=== PATIENT | female | born 1960 | race Caucasian/White ===

== ENCOUNTER → 2021-08-23 | Outpatient (CLI) | payer BC ==
[2021-08-23 16:50] LABS: HCT 41.1 % (34.0-46.0); HGB 13.6 gm/dL (11.4-16.0); MCV 90.9 fL (80.0-100.0); Mean Platelet Volume 8.3; Platelet Count 284 k/uL (150-450); RBC 4.53 m/uL (3.80-5.40); RDW 13.4 % (11.5-15.5); WBC 9.6 k/uL (3.8-10.6)
[2021-08-23 16:56] LABS: Appearance,Urine Clear (Clear); Bilirubin,Urine Negative (Negative); Blood,Urine Negative (Negative); Color,Urine Light Yellow; Glucose,Urine (UA) Negative (Negative); Ketones,Urine Negative (Negative); Leukocyte Esterase,Urine Negative (Negative); Nitrite,Urine Negative (Negative); PH, Urine 5.5 (5.0-8.0); Protein,Urine Negative (Negative); Urobilinogen,Urine <2.0 mg/dL (<2.0)
[2021-08-23 17:05] LABS: INR 0.9 (<1.2); Partial Thromboplastin Time 23.8 sec (22.0-30.0); Prothrombin Time 10.2 sec (9.0-12.0)
[2021-08-23 17:08] LABS: ALT 17 U/L (4-34); AST 24 U/L (14-36); African American GFR (CKD) >90 (>60 ml/min/1.73 sqM); Albumin 4.5 g/dL (3.5-5.0); Alkaline Phosphatase 85 U/L (38-126); Anion Gap 9 mmol/L; Blood Urea Nitrogen 14 mg/dL (7-17); Calcium 9.8 mg/dL (8.4-10.2); Carbon Dioxide 27 mmol/L (22-30); Chloride 102 mmol/L (98-107); Glucose 99 mg/dL (74-99); Non-African American GFR(CKD) >90 (>60 ml/min/1.73 sqM); Potassium 4.2 mmol/L (3.5-5.1); Sodium 138 mmol/L (137-145); Total Bilirubin 0.6 mg/dL (0.2-1.3); Total Protein 7.3 g/dL (6.3-8.2)
== END | disposition home or self-care (01) ==
LOC: LABPAT 16:30
PROVIDERS: ATTEND Orthopaedic Surgery Sports Medicine
DX: Z01.812 Encounter for preprocedural laboratory examination (principal); M17.12 Unilateral primary osteoarthritis, left knee
CPT/HCPCS: 36415; 80053; 81003; 85027; 85610; 85730; 87070

== ENCOUNTER → 2021-09-13 | Outpatient (CLI) | payer BC | END | disposition home or self-care (01) | LOC: RADNMMAIN 07:54 | PROVIDERS: ATTEND Family Medicine | DX: Z53.9 Procedure and treatment not carried out, unspecified reason (principal) ==

== ENCOUNTER → 2021-09-28 | Outpatient (CLI) | payer BC ==
[2021-09-29 12:19] LABS: Coronavirus SARS CoV-2 Not Detected (Not Detected)
== END | disposition home or self-care (01) ==
LOC: LABPAT 07:55
PROVIDERS: ATTEND Internal Medicine Cardiovascular Disease
DX: Z20.822 Contact with and (suspected) exposure to COVID-19 (principal)
CPT/HCPCS: U0003; C9803; U0005

== ENCOUNTER 2021-10-01 06:10 | Day surgery (SDC) | payer BC ==
[2021-09-28 13:07] VITALS: BMI 41.9
[~2021-10-01 06:10] MED LIST: ALPRAZolam 0.25 MG TAB PO PRN; ALPRAZolam 0.5 MG TAB PO PRN; ATORVASTATIN 80 MG TAB PO STA; NITROGLYCERIN SL TABS 0.4 MG TAB SUBLINGUAL PRN; SODIUM CHLORIDE 0.9% 1,000 ML in EMPTY BAG 1 BAG IV SCH
[2021-10-01] MEDS ORDERED: SODIUM CHLORIDE 0.9% 1,000 ML IV ONE (06:19)
[2021-10-01 06:45] VITALS: RESP 16; TEMP 98.1
[2021-10-01 06:48] LABS: Basophils % (A) 1 %; Eosinophils # (A) 0.3 k/uL (0-0.7); Eosinophils % (A) 5 %; HCT 40.9 % (34.0-46.0); HGB 13.2 gm/dL (11.4-16.0); Lymphocytes # (A) 1.9 k/uL (1.0-4.8); Lymphocytes % (A) 26 %; MCH 29.6 pg (25.0-35.0); MCHC 32.3 g/dL (31.0-37.0); MCV 91.8 fL (80.0-100.0); Mean Platelet Volume 8.7; Monocytes # (A) 0.4 k/uL (0-1.0); Monocytes % (A) 5 %; Neutrophils # (A) 4.6 k/uL (1.3-7.7); Neutrophils % (A) 62 %; Platelet Count 285 k/uL (150-450); RBC 4.45 m/uL (3.80-5.40); RDW 14.1 % (11.5-15.5); WBC 7.4 k/uL (3.8-10.6)
[2021-10-01 07:08] LABS: African American GFR (CKD) >90 (>60 ml/min/1.73 sqM); Anion Gap 8 mmol/L; Blood Urea Nitrogen 16 mg/dL (7-17); Calcium 9.7 mg/dL (8.4-10.2); Carbon Dioxide 25 mmol/L (22-30); Chloride 107 mmol/L (98-107); Glucose 113 mg/dL (74-99); Non-African American GFR(CKD) >90 (>60 ml/min/1.73 sqM); Potassium 4.8 mmol/L (3.5-5.1); Sodium 140 mmol/L (137-145)
[2021-10-01] MEDS: fentaNYL (PF) 50 MCG/ML 2 ML AMP IV ONE ×2 (07:35→07:46)
[2021-10-01] MEDS: MIDAZOLAM 2 MG/2 ML VIAL IV ONE ×2 (07:35→07:46)
[2021-10-01] MEDS ORDERED: LIDOCAINE 1% INJ 10MG/ML (20 ML MDV) SQ ONE (07:38)
[2021-10-01] MEDS ORDERED: VERAPAMIL SYRINGE (5 MG/10 ML) INTRAARTER ONE (07:45)
[2021-10-01] MEDS ORDERED: HEPARIN SODIUM 1,000 UN/ML (10ML VL) IV ONE (07:48)
[2021-10-01] MEDS ORDERED: IOPAMIDOL-370 125ML BTL INJ ONE (07:56)
--- NOTE | 2021-10-01 09:45 | LTR ---
October 01, 2021 To: Dr. Malin Re: Elizabeth Bob (62) Dear Noah, I performed cardiac catheterization on Elizabeth Bob. A detailed catheterization note is enclosed for your records. In brief, this 60-year-old lady who was to undergo knee replacement was referred to us because of an abnormal stress echo. I am happy to report to you that on the cardiac catheterization I performed she has normal coronary arteries, and she can proceed with her knee replacement by Dr. Kaiser. Thank you for giving me the privilege of participating in the care of this pleasant lady. Sincerely, Vikram Brown M.D. EVERT / IVONNE: [id number] /
--- NOTE | 2021-10-01 09:45 | CC ---
CARDIAC CATHETERIZATION REPORT INDICATION: Abnormal stress echo. This is a 60-year-old lady who was to undergo bilateral knee replacement surgery by Dr. Kaiser and was referred to us and underwent a stress echo that was abnormal, due to which she was referred to us for further evaluation. Patient was advised to undergo cardiac catheterization. She understood risks, benefits and alternatives. PROCEDURE NOTE: After obtaining informed consent, left heart catheterization and coronary angiogram were performed via the right radial artery using size 4 right and left Angie catheters. Left ventricular end-diastolic pressures were obtained by the right Angie catheter. The right radial artery access was obtained using a micropuncture needle, and under fluoroscopic guidance wires and catheters were floated into the ascending aorta and catheters were exchanged there. Patient received 5 mg of verapamil, 5000 units of heparin, 2 mg of Versed and 50 mcg of fentanyl. Post cardiac catheterization a TR band was applied as per protocol. Pulse ox was documented at 99%. Total sedation time was 21 minutes. FINDINGS: HEMODYNAMICS: The left ventricular end-diastolic pressure is 16 mm. There is no significant gradient across the aortic valve. LEFT VENTRICULOGRAM: Left ventriculogram was not performed. ANGIOGRAPHIC DATA: Left main coronary artery. Left main coronary artery is a normal-sized vessel and is free of stenosis. It divides into left anterior descending coronary artery and circumflex coronary artery. LAD and its branches, circumflex coronary artery and its branches are free of significant stenosis. Right coronary artery is a codominant vessel and is free of significant disease. CONCLUSIONS: 1. Normal coronary arteries. 2. False stress echo. PLAN: Patient is cleared to undergo knee replacement. MMODL / IJN: [id number] /
[2021-10-01] MEDS ORDERED: RX INFO: IV CONTRAST WAS GIVEN 1 EACH MISC MISCELLANE PRN (11:06)
[2021-10-01] MEDS ORDERED: SODIUM CHLORIDE 0.9% 1,000 ML IV SCH (11:15)
[2021-10-01 16:19] VITALS: BP 116/66; PULSE 66
== END 2021-10-01 13:03 | disposition home or self-care (01) ==
LOC: CATHCVL 06:10
PROVIDERS: ATTEND Internal Medicine Cardiovascular Disease
DX: I49.1 Atrial premature depolarization (principal); R94.39 Abnormal result of other cardiovascular function study; R93.1 Abnormal findings on diagnostic imaging of heart and coronary circulation; M19.90 Unspecified osteoarthritis, unspecified site; E78.2 Mixed hyperlipidemia; J45.909 Unspecified asthma, uncomplicated; I10 Essential (primary) hypertension; E78.5 Hyperlipidemia, unspecified; Z82.49 Family history of ischemic heart disease and other diseases of the circulatory system
CPT/HCPCS: 93458; 80048; 85025; C1894; J2250; J2001; J3010; J1644; Q9967

== ENCOUNTER 2021-10-28 07:24 | Observation (INO) | payer BC ==
[2021-10-25 13:00] VITALS: BMI 41.9
[~2021-10-28 07:24] MED LIST changes: +ACETAMINOPHEN TAB 500 MG TAB PO PRN; -ALPRAZolam 0.25 MG TAB PO PRN; -ALPRAZolam 0.5 MG TAB PO PRN; -ATORVASTATIN 80 MG TAB PO STA; +DEXAMETHASONE SOD PHOSPHATE 4 MG/ML 1 ML VIAL IV ONE; +GABAPENTIN 300 MG CAP PO PRN; +HYDROmorphone 0.5 MG/0.5 ML SYRINGE IVP PRN; +LACTATED RINGERS 1,000 ML IV SCH; +MIDAZOLAM 2 MG/2 ML VIAL IV PRN; -NITROGLYCERIN SL TABS 0.4 MG TAB SUBLINGUAL PRN; +ONDANSETRON 4 MG/2 ML VIAL IVP ONE; +ONDANSETRON 4 MG/2 ML VIAL IVP PRN; -SODIUM CHLORIDE 0.9% 1,000 ML in EMPTY BAG 1 BAG IV SCH; +TRANEXAMIC ACID 1,000 MG in SODIUM CHLORIDE 0.9% 100 ML IVPB PRN
[2021-10-28] MEDS ORDERED: bisacodyL 10 MG SUPP RECTAL PRN (08:39)
[2021-10-28] MEDS ORDERED: HYDROmorphone 1 MG/ML 1 ML SYRINGE IVP PRN (08:39)
[2021-10-28] MEDS ORDERED: TEMAZEPAM 15 MG CAP PO PRN (08:39)
[2021-10-28] MEDS ORDERED: NA PHOS,M-B/NA PHOS,DI-BA 133 ML ENEMA RECTAL PRN (08:39)
[2021-10-28] MEDS ORDERED: ONDANSETRON 4 MG/2 ML VIAL IVP PRN (08:39)
[2021-10-28] MEDS ORDERED: NALOXONE 0.4 MG/ML 1 ML VIAL IV PRN (08:39)
[2021-10-28] MEDS ORDERED: MAGNESIUM HYDROXIDE 2,400 MG/10 ML CUP PO PRN (08:39)
[2021-10-28] MEDS ORDERED: ACETAMINOPHEN TAB 325 MG TAB PO PRN (08:39)
[2021-10-28] MEDS ORDERED: HYDROmorphone 0.2 MG/1 ML SYRINGE IVP PRN (08:39)
[2021-10-28] MEDS ORDERED: diazePAM 5 MG TAB PO PRN (08:39)
[2021-10-28] MEDS ORDERED: MIDAZOLAM 2 MG/2 ML VIAL IVP ONE (08:40)
[2021-10-28] MEDS ORDERED: HYDROcodone/APAP 7.5-325MG 1 EACH TAB PO PRN (08:43)
[2021-10-28] MEDS ORDERED: fentaNYL (PF) 50 MCG/ML 2 ML AMP IVP ONE (09:00)
[2021-10-28] MEDS ORDERED: DEXAMETHASONE SOD PHOSPHATE 4 MG/ML 1 ML VIAL ONE (09:01)
[2021-10-28] MEDS ORDERED: MIDAZOLAM 2 MG/2 ML VIAL ONE (09:01)
[2021-10-28] MEDS ORDERED: SODIUM CHLORIDE 0.9% 100 ML BAG ONE (09:01)
[2021-10-28] MEDS ORDERED: fentaNYL (PF) 50 MCG/ML 2 ML AMP ONE (09:01)
[2021-10-28] MEDS ORDERED: PROPOFOL 10 MG/ML 20 ML VIAL IV ONE (09:01)
[2021-10-28] MEDS ORDERED: PHENYLEPHRINE-0.9% NACL SYG 1,000 MCG/10 ML SYRINGE ONE (09:01)
[2021-10-28] MEDS ORDERED: TRANEXAMIC ACID 1,000 MG/10 ML VIAL ONE (09:01)
[2021-10-28] MEDS ORDERED: ROPIVACAINE 5 MG/ML 30 ML VIAL ONE (09:01)
[2021-10-28] MEDS ORDERED: ePHEDrine 50 MG/ML 1 ML VIAL ONE (09:01)
[2021-10-28] MEDS ORDERED: LIDOCAINE 1% INJ 10MG/ML (20 ML MDV) ONE (09:01)
[2021-10-28] MEDS ORDERED: ceFAZolin 3,000 MG in SODIUM CHLORIDE 0.9% IRRIGATIO 3,000 ML IRRIGATION ONE (09:27)
[2021-10-28] MEDS ORDERED: LACTATED RINGERS 1,000 ML IV ONE (10:42)
[2021-10-28] MEDS ORDERED: ROPIVACAINE 0.2%-NS ON-Q PUMP 1,090 MG, EMPTY PAIN BALL 1 EACH MISCELLANE PRN (11:47)
--- NOTE | 2021-10-28 11:47 | XR ---
EXAMINATION TYPE: XR knee limited LT DATE OF EXAM: 10/28/2021 COMPARISON: NONE HISTORY: 60-year-old female evaluation for postoperative abnormality and alignment TECHNIQUE: 2 views FINDINGS: Anterior soft tissue swelling with scattered soft tissue air as well as intra-articular air related t o recent operation. Images show placement of left total knee arthroplasty. Both distal femoral and pr oximal tibial components of the prosthesis are well seated without periprosthetic fracture. Alignment grossly anatomic. IMPRESSION: Uncomplicated postoperative appearance left total knee arthroplasty.
--- NOTE | 2021-10-28 13:42 | OP ---
OPERATIVE REPORT DATE OF PROCEDURE: 10/28/2021. SURGEON: Andrea Kaiser MD. COLD TYPE COMPOSING MACHINE OPERATOR: Hong PARKER. PREOPERATIVE DIAGNOSIS: Left knee osteoarthrosis. POSTOPERATIVE DIAGNOSIS: Left knee osteoarthrosis. OPERATION: Left total knee arthroplasty. ANESTHESIA: Spinal with sedation. ESTIMATED BLOOD LOSS: 200 mL. TOURNIQUET: Tourniquet time was 59 minutes at 300 mmHg. COMPLICATIONS: None apparent. DRAINS: None. DISPOSITION: Postanesthesia care unit. INDICATIONS: Elizabeth is a very pleasant 60-year-old female with longstanding history of left knee pain. History and physical examination are consistent with advanced left knee osteoarthrosis. She has been through significant nonoperative management up to this point. Further treatment options were discussed and she has decided to go forward with left total knee arthroplasty. The risks of the procedure were discussed with her in detail. These risks included, but are not limited to risk of infection, nerve damage, bleeding, pain, and a small risk of deep vein thrombosis which could lead to fatal pulmonary embolism. There is also risk of loosening of the implant which could require revision operation. The patient understands these risks. All of her questions were answered to her satisfaction. Appropriate informed consent was obtained. DESCRIPTION OF PROCEDURE: The patient was identified in the preoperative holding area. Surgical site was marked by both the patient and myself. She was given 3 grams of Ancef IV for prophylactic purposes. She was then transferred to the operative suite. She was placed supine on the operative table. Spinal anesthetic was then administered and dosed per the anesthesia without apparent complication. Examination under anesthesia was then performed. The patient was 2-3 degrees shy of full extension. She had 95 degrees of flexion. The medial collateral ligament, lateral collateral ligament posterior cruciate ligaments were stable. A tourniquet was then placed high on the left upper thigh well-padded in preparation for surgery. The patient's left lower extremity was then prepped and draped in usual sterile fashion. Standard surgical pause undertaken to ensure that we were operating the correct site and that appropriate preoperative antibiotics had been given. All staff were in the room were in agreement and we proceeded. The outlines of the patella marked with a surgical pen. A planned 12 cm vertical incision centered over the patella was marked with a surgical pen. The leg was then exsanguinated with an Esmarch dressing. The knee was then flexed and the tourniquet was inflated to 300 mmHg. The total tourniquet time for the procedure was 59 minutes. Incision was then made with a 10 blade scalpel. Dissection carried down sharply overlying fascia. Great care was taken to minimize the skin flaps. The knee was then exposed using a standard medial parapatellar approach. A small cuff of quadriceps tendon was left for suturing. She was in a bit of varus preoperatively. A standard medial release was then made. Superficial medial collateral ligament dissected off the bone around the posterior aspect of the proximal tibia. The medial meniscus excised as well. The lateral meniscus was also released anteriorly. The leg was then externally rotated. The patella was everted. The knee was flexed the retractors then placed to protect the collateral ligaments. I then proceeded to remove the infrapatellar fat pad. This was excised sharply tangentially with fibers of the patellar tendon. I then proceeded to remove the peripheral osteophytes. This was done with a rongeur. I then proceeded with the distal femoral resection. She did have near full extension. A planned 9 mm resection was then done. The femoral canal was then into the midline. The femur approximately 10 mm anterior to the origin of posterior cruciate ligament. The mary was then advanced down the center of the femur and placed intramedullary. Based on the preoperative radiographs, the angle between the anatomic and mechanical axis of the femur was approximately 4-5 degrees. The valgus angle of the distal femoral cutting guide was then set at 4 degrees for the left knee. The distal femoral cutting guide was then advanced over the intramedullary mary. This was seated firmly against the femur. Then as mentioned planned to take 9 mm off the distal femur. Then, the femoral cutting block was then centered. It was then secured onto the femur with pins. The jig was then removed. The distal femoral cut was made through the slot of the block. The pins then removed. Distal femoral cutting block was removed. The accuracy of the distal femoral cuts was checked with 2 flat bars. I then proceeded with femoral sizing. Posterior referencing sizing guide was held firmly against the resected distal surface of the femur. The posterior condyles were resting on the posterior plane of the guide. The sizing guide was then placed on the anterior femur. The size measured a size 8. I then assessed for femoral rotation. The plan was for 3 degrees of external rotation. 3 degrees external rotation was placed onto the jig. These holes were then marked. I then confirmed the rotation by 3 separate methods. This was done using epicondylar axis as well as Whitesides line and posterior referencing. It was deemed that the external rotation was proper. I then went forward with placing the femoral cutting block. This was placed over the previously placed pin holes. The Jian wing was then placed on the anterior slots to ensure that we would not notch the anterior femur with the anterior femoral cut. I then proceeded with the anterior femoral cut. This was flush with the anterior cortex of the femur. The posterior cuts were then made followed by the anterior chamfer cut, then the posterior chamfer cut. The cutting block was then removed. Throughout the resection, the collateral ligaments were protected with retractors. I then placed a trial size 8 femur. It was slightly wide, but the narrow fit very nicely and it fit flush with the distal end of the femur. The drill hole was then made. I then proceeded with the tibial cut. I planned for cruciate retaining knee. Guide was placed and set for varus valgus and for slope. Height set for approximate 2 mm resection from the medial tibial plateau which was the lower side. I was happy with the alignment and amount of resection. The cutting block was then pinned to the proximal tibia. The alignment mary was removed. The proximal tibia was resected with a reciprocating saw. Again, this was done with retractors protecting the collateral ligaments as well as the posterior cruciate ligament. I then proceeded to evaluate the flexion extension gaps. A 10 mm block was then placed. The flexion and extension gaps were equal. I then proceeded with resection of posterior osteophytes. She had very minimal posterior osteophytes. This was done using a curved osteotome. This resected the posterior osteophytes and posterior capsule stripping was done off the posterior aspect of the femur at this time. The osteophytes were then removed. I then proceed with resection of the patella. The thickness of the patella was measured using the caliper. The thickness was 22 mm. The thickness of the anticipated patellar dome was taken into account. Resection was then performed and confirmed to be equal in 4 quadrants using a caliper. Approximately 14 mm of bone remained after resection. A 29 x 8 standard patellar trial was then placed. The holes drilled. The trial was then placed. I then proceeded with sizing tibial plate. A size D tibial plate fit very nicely. I then placed the trial femur in the tibial tray and the patellar button. A 10 mm trial tibial insert was also placed. The components fit very nicely. She had full extension and flexion. The extension and flexion gaps were equal and stable to both varus and valgus stress. The patella tracked appropriately. The tibial tray rotation was then marked with a Bovie. This was externally rotated properly. I then proceeded with the tibial preparation. First drilled the femoral holes and removed femoral component. The tibial tray was then set for proper external rotation as well as mediolateral placement onto the tibia. It was then pinned in place. I then proceeded with punching the keel. I then decided to proceed with cementing of all of our components. The knee was thoroughly irrigated with sterile saline solution via pulse lavage. The lateral geniculate artery was identified and cauterized. All blood was removed from the bone of the tibia femur and patella with pulse lavage. I then proceed with cementing. Two packs of antibiotic bone cement prepared on the back table by the surgical garment fitter. I then proceed with cementing the tibia first. The cement was impacted in the keel as well as deeply seated in the bone. A second coat of cement was then placed. The tibia was then impacted into place. Excess cement was removed with Maritza's and jokers. I then proceeded with cementing the femoral component. The femoral component was also cemented using standard technique. Excess cement was removed. A 10 mm trial insert was then placed in the knee. It was brought into full extension with a constant axial load placed until the cement had hardened. The patellar component was then cemented. This was held firmly with a compressive device until the cement had dried. When the cement had dried, the knee was taken out of extension. All excess cement was removed from around the prosthesis. I then trialed the knee with a 10 mm insert. Flexion extension gaps were appropriate. The knee was stable. It came in full extension. I decided to go forward with a 10 mm medial congruent cross-linked cruciate-retaining tibial insert. Polyethylene was then placed on the tibial tray and locked in place. The knee was then reduced. The knee was again further irrigated with sterile saline solution with antibiotic added. The tourniquet was then deflated. Total tourniquet time for the procedure was 59 minutes at 300 mmHg. The final components were Adalgisa Persona, size 8 narrow cruciate-retaining femoral component, size D tibial tray, a 10 mm medial congruent cruciate-retaining polyethylene insert and a 29 x 8 mm patella. I then proceeded with closure. Again, the knee was thoroughly irrigated. The quadriceps tendon. The medial retinaculum were reapproximated with #2 Ethibond suture. The extensor mechanism was then closed with a running #2 Quill suture. Subcutaneous tissues were closed with 2-0 Vicryl interrupted suture. The skin was closed with a running 3-0 Quill suture. A Dermabond was applied to the incision. Sterile compressive dressings were applied. All sponge and needle counts were deemed correct prior to closure. The patient tolerated procedure without apparent complication. She was transferred recovery room in stable condition. MMODL / IJN: [id number] /
[2021-10-28] MEDS: HYDROmorphone 1 MG/ML 1 ML SYRINGE IVP PRN ×3 (14:36→21:20)
[2021-10-28] MEDS: RIVAROXABAN 10 MG TAB PO SCH (14:54)
[2021-10-28] MEDS: ceFAZolin 3 GM in SODIUM CHLORIDE 0.9% 100 ML IVPB SCH ×2 (15:45→21:26)
--- NOTE | 2021-10-28 17:56 | P.CONS ---
History of Present Illness - Reason for Consult Consult date: 10/28/21 - Chief Complaint Medical management - History of Present Illness 60-year-old woman with a medical history of osteoarthritis, mild intermittent asthma presented for elective TKA. Patient is doing well postoperatively, complaining of slight pain at the site of procedure. Otherwise, has no new complaints. She is already been up and ambulating in the room. She denies fevers, chills, nausea, vomiting, chest pain, palpitations, syncope, presyncope, cough, dyspnea, abdominal pain, constipation, diarrhea, dysuria, dyschezia, numbness/weakness of extremities. She takes no medications at home, her only medications are rescue inhaler with albuterol as well as rescue Symbicort. Patient is afebrile, 105/70, and heart rate is 94, any 6% on room air. Covid was negative. Review of Systems All Systems reviewed and pertinent positives and negatives noted in HPI, all other symptoms are negative Past Medical History Past Medical History: Osteoarthritis (OA) Additional Past Medical History / Comment(s): pt denies hypertension and hyperlipidemia History of Any Multi-Drug Resistant Organisms: None Reported Past Surgical History: Section, Cholecystectomy, Heart Catheterization Additional Past Surgical History / Comment(s): C/S x 3 Past Anesthesia/Blood Transfusion Reactions: No Reported Reaction Additional Past Anesthesia/Blood Transfusion Reaction / Comm: claustrophobic Past Psychological History: No Psychological Hx Reported Smoking Status: Never smoker Past Alcohol Use History: None Reported Past Drug Use History: None Reported - Past Family History Mother Family Medical History: No Reported History Medications and Allergies Home Medications Medication Instructions Recorded Confirmed Type Acetaminophen [Tylenol Extra 500 mg PO DIRECTED PRN 10/25/21 10/28/21 History Strength] Allergies Allergy/AdvReac Type Severity Reaction Status Date / Time aspirin Allergy Anaphylaxis Verified 10/28/21 07:42 iodine Allergy Anaphylaxis Verified 10/28/21 07:42 NSAIDS (Non-Steroidal Allergy Unknown Verified 10/28/21 07:42 Anti-Inflamma peanut Allergy Anaphylaxis Verified 10/28/21 07:42 shellfish derived [Shellfish] Allergy Anaphylaxis Verified 10/28/21 07:42 walnut Allergy Anaphylaxis Verified 10/28/21 07:42 Physical Exam Osteopathic Statement: *. No significant issues noted on an osteopathic structural exam other than those noted in the History and Physical/Consult. Vitals: Vital Signs Temp Pulse Pulse Pulse Resp BP BP 10/28/21 13:54 98.2 F 94 18 105/70 10/28/21 12:25 71 17 96/52 10/28/21 12:10 82 16 96/49 10/28/21 11:55 70 18 96/49 10/28/21 11:40 72 16 95/74 10/28/21 11:25 74 16 91/44 10/28/21 11:10 97.6 F 77 16 120/58 10/28/21 09:01 84 18 117/58 10/28/21 08:03 97.0 F L 90 18 118/55 Pulse Ox 10/28/21 13:54 96 10/28/21 12:25 94 L 10/28/21 12:10 95 10/28/21 11:55 98 10/28/21 11:40 96 10/28/21 11:25 95 10/28/21 11:10 93 L 10/28/21 09:01 100 10/28/21 08:03 96 Intake and Output 10/28/21 10/28/21 10/28/21 06:59 14:59 22:59 Intake Total 1651 Balance 1651 Intake: IV 1651 Other: Weight 125.3 kg Gen: awake, alert HEENT: normocephalic, atraumatic, good hearing acuity, moist mucous membranes Resp: good air exchange, breathing comfortably with no accessory muscle use CVS: good distal perfusion x 4, GI: soft, NTTP, ND : no SPT, no CVAT, bangura catheter not present MSK: no pitting edema, no clubbing Neuro: non-focal, moving all extremities Psych: cooperative, euthymic mood Assessment and Plan Assessment: Mild intermittent asthma -albuterol PRN -symbicort PRN Osteoarthritis Left TKA - pain control and DVT ppx per primary team Thank you for this consult. We will continue to follow along, and a member of our team is available 27/03 via [employer].
[2021-10-28] MEDS ORDERED: ALBUTEROL NEB (CONC) 2.5 MG/0.5 ML INHALATION PRN (18:12)
[2021-10-28] MEDS: SENNOSIDES-DOCUSATE SODIUM 1 EACH TAB PO SCH (21:21)
[2021-10-28] MEDS: LACTATED RINGERS 1,000 ML IV SCH (21:25)
[2021-10-28] MEDS ORDERED: ALBUTEROL NEBULIZED 2.5 MG/3 ML INHALATION PRN (21:41)
[2021-10-29] MEDS: HYDROcodone/APAP 7.5-325MG 1 EACH TAB PO PRN ×3 (01:00→12:06)
[2021-10-29] MEDS: LACTATED RINGERS 1,000 ML IV SCH ×2 (03:14→05:25)
[2021-10-29] MEDS: RIVAROXABAN 10 MG TAB PO SCH (07:53)
--- NOTE | 2021-10-29 09:25 | P.PN ---
Progress Note - Text 10/29/21 643am 60-year-old female status post total knee replacement were Dr. Kaiser. Patient has an On-Q pump for postop pain control with the solution running at 8 mL an hour with a VAS of 5, the pain is predominantly located posteriorly. She has no pain in the anterior portion of the knee. Plan to continue On-Q pump infusion
--- NOTE | 2021-10-29 09:30 | P.ANPRN ---
Procedure Note - Anesthesia - Nerve Block Performed Left Adductor Canal Infusion Time Out Performed: Yes Date of Procedure: 10/28/21 Procedure Start Time: 08:40 Procedure Stop Time: 08:51 Location of Patient: PreOp Indication: Acute Post-Operative Pain, Requested by Surgeon Sedation Type: Sedate with meaningful contact maintained Preparation: Sterile Prep, Sterile Dressing Position: Supine Catheter: Indwelling Needle Types: Pajunk Needle Gauge: 21 Ultrasound used to visualize needle placement: Yes Ultrasound used to observe medication spread: Yes Blood Aspirated: No Pain Paresthesia on Injection Noted: No Resistance on Injection: Normal Image Stored and Saved: Yes Events: Uneventful and Well Tolerated (Ropivacaine 0.5% 20 mL)
--- NOTE | 2021-10-29 09:33 | P.ANPRN ---
Procedure Note - Anesthesia - Nerve Block Performed Left iPack Single Time Out Performed: Yes Date of Procedure: 10/28/21 Procedure Start Time: 08:52 Procedure Stop Time: 08:57 Location of Patient: PreOp Indication: Acute Post-Operative Pain, Requested by Surgeon Sedation Type: Sedate with meaningful contact maintained Preparation: Sterile Prep Position: Supine Needle Types: Pajunk Needle Gauge: 21 Ultrasound used to visualize needle placement: Yes Ultrasound used to observe medication spread: Yes Blood Aspirated: No Pain Paresthesia on Injection Noted: No Resistance on Injection: Normal Image Stored and Saved: Yes Events: Uneventful and Well Tolerated (Ropivacaine 0.5% 20 mL plus dexamethasone 4 mg)
[2021-10-29 09:39] LABS: Basophils # (A) 0.01 X 10*3/uL (0.00-0.10); Basophils % (A) 0.1 %; Eosinophils # (A) 0.03 X 10*3/uL (0.04-0.35); Eosinophils % (A) 0.3 %; HCT 31.4 % (37.2-46.3); Immature Grans, Automated 0.4 %; Lymphocytes # (A) 1.69 X 10*3/uL (0.90-5.00); MCH 29.4 pg (27.0-32.0); MCHC 31.8 g/dL (32.0-37.0); MCV 92.4 fL (80.0-97.0); Mean Platelet Volume 11.1 fL (9.5-12.2); Monocytes # (A) 1.01 X 10*3/uL (0.20-1.00); Monocytes % (A) 9.6 %; NRBC Per 100 WBC 0 /100 WBCS (0.0-0.0); Neutrophils # (A) 7.79 X 10*3/uL (1.80-7.70); Neutrophils % (A) 73.6 %; Platelet Count 264 X 10*3/uL (140-440); RDW 13.5 % (11.5-14.5); WBC 10.57 X 10*3/uL (4.50-10.00)
--- NOTE | 2021-10-29 10:54 | P.PN ---
Subjective Progress Note Date: 10/29/21 No new complaints today. Pt doing well, cleared for discharge from medical perspective. Med rec addressed. Objective - Vital Signs Vital signs: Vital Signs Temp 98.3 F 10/29/21 06:57 Pulse 76 10/29/21 07:15 Resp 18 10/29/21 07:15 BP 108/61 10/29/21 06:57 Pulse Ox 99 10/29/21 06:57 Intake & Output 10/28/21 10/29/21 10/29/21 18:59 06:59 18:59 Intake Total 1651 Balance 1651 Weight 125.3 kg Intake: IV 1651 Other: # Voids 4 - Exam Gen: awake, alert HEENT: normocephalic, atraumatic, good hearing acuity, moist mucous membranes Resp: good air exchange, breathing comfortably with no accessory muscle use CVS: good distal perfusion x 4, GI: soft, NTTP, ND : no SPT, no CVAT, bangura catheter not present MSK: no pitting edema, no clubbing Neuro: non-focal, moving all extremities Psych: cooperative, euthymic mood - Labs CBC & Chem 7: 10/29/21 06:01 Labs: Abnormal Lab Results - Last 24 Hours (Table) 10/29/21 Range/Units 06:01 WBC 10.57 H (4.50-10.00) X 10*3/uL RBC 3.40 L (4.10-5.20) X 10*6/uL Hgb 10.0 L (12.0-15.0) g/dL Hct 31.4 L (37.2-46.3) % MCHC 31.8 L (32.0-37.0) g/dL Neutrophils # 7.79 H (1.80-7.70) X 10*3/uL Monocytes # 1.01 H (0.20-1.00) X 10*3/uL Eosinophils # 0.03 L (0.04-0.35) X 10*3/uL Assessment and Plan Assessment: Mild intermittent asthma -albuterol PRN -symbicort PRN Osteoarthritis Left TKA - pain control and DVT ppx per primary team Thank you for this consult. We will continue to follow along, and a member of our team is available 27/03 via [employer].
[2021-10-29] MEDS: MULTIVITAMINS, THERA 1 EACH TAB PO SCH (11:58)
[2021-10-29] MEDS ORDERED: HYDROcodone/APAP 10-325MG 1 EACH TAB PO PRN (12:21)
[2021-10-29] MEDS: traMADol 50 MG TAB PO PRN ×2 (14:24→20:12)
--- NOTE | 2021-10-29 14:48 | P.PN ---
Subjective Progress Note Date: 10/29/21 Principal diagnosis: Left TKA Patient is seen at bedside this morning. She is postop day #1 from left total knee arthroplasty. She has pain at the surgical site as expected but denies any new complaints. She denies numbness, tingling or calf pain. Review of systems is negative for fever, chills, chest pain, shortness of breath or other Objective - Vital Signs Vital signs: Vital Signs Temp 98.3 F 10/29/21 06:57 Pulse 76 10/29/21 07:15 Resp 18 10/29/21 07:15 BP 108/61 10/29/21 06:57 Pulse Ox 99 10/29/21 06:57 Intake & Output 10/28/21 10/29/21 10/29/21 18:59 06:59 18:59 Intake Total 1651 Balance 1651 Weight 125.3 kg Intake: IV 1651 Other: # Voids 4 - Exam Inspection reveals a benign surgical wound. There is no active bleeding or drainage. Neurovascular status is intact throughout the lower extremity with motor and sensation fully intact. Calf is soft and nontender. 2+ dorsalis pedis pulse and less than 2 second cap refill is present. - Constitutional General appearance: Present: no acute distress - Labs CBC & Chem 7: 10/29/21 06:01 Labs: Abnormal Lab Results - Last 24 Hours (Table) 10/29/21 Range/Units 06:01 WBC 10.57 H (4.50-10.00) X 10*3/uL RBC 3.40 L (4.10-5.20) X 10*6/uL Hgb 10.0 L (12.0-15.0) g/dL Hct 31.4 L (37.2-46.3) % MCHC 31.8 L (32.0-37.0) g/dL Neutrophils # 7.79 H (1.80-7.70) X 10*3/uL Monocytes # 1.01 H (0.20-1.00) X 10*3/uL Eosinophils # 0.03 L (0.04-0.35) X 10*3/uL Assessment and Plan (1) Status post total left knee replacement Narrative/Plan: She will continue with routine postop orthopedic protocol including pain management, wound care, PT, DVT prophylaxis and medical management. we will adjust pain meds for better pain control today. Expect that she will transfer to home tomorrow Current Visit: Yes Status: Acute Priority: Medium Code(s): Z96.652 - PRESENCE OF LEFT ARTIFICIAL KNEE JOINT SNOMED Code(s): 1869935021058 Time with Patient: Less than 30
[2021-10-29] MEDS: HYDROcodone/APAP 10-325MG 1 EACH TAB PO PRN ×2 (17:44→23:32)
[2021-10-29] MEDS: SENNOSIDES-DOCUSATE SODIUM 1 EACH TAB PO SCH (22:08)
[2021-10-30] MEDS: traMADol 50 MG TAB PO PRN ×3 (02:23→14:38)
[2021-10-30] MEDS: HYDROcodone/APAP 10-325MG 1 EACH TAB PO PRN ×2 (05:23→12:02)
[2021-10-30] MEDS: RIVAROXABAN 10 MG TAB PO SCH (08:27)
--- NOTE | 2021-10-30 09:26 | P.DS ---
Providers Date of admission: 10/28/21 22:30 Expected date of discharge: 10/30/21 Attending physician: Andrea Kaiser Consults: 10/28/21 08:39 Consult Physician Routine Consulting Provider: Joselyn Edwards Consult Reason/Comments: post op medical management Do you want consulting provider notified?: Yes Primary care physician: Chris Malin MD Hospital Course: This is a 60-year-old female who was last seen with complaint of continued left knee pain. The patient has a known history of degenerative arthritis of the left knee and presents to discuss surgical options. After discussion and consideration the patient elects to proceed with total left knee arthroplasty with Dr. Kaiser. The patient is seen preoperatively by Dr. Malin and cleared for surgery. The patient is admitted to [facility] for total left knee arthroplasty. The procedures performed without complication or sequelae. She is doing well postoperatively. Vital signs are stable at discharge. Labs are stable at discharge. Patient is seen and examined bedside the day of discharge. She states her pain is well controlled. The patient is ambulating well with walker with minimal assistance. Patient is tolerating her diet well. She denies chest pain, shortness of breath, nausea, vomiting. On examination, patient is sitting in the bedside chair in no apparent distress. She is alert and orientated x3. On inspection of the left knee, there is clean, dry, intact dressing intact. The incision is healing well with no drainage, erythema. Motor and sensory function intact left lower extremity. Dorsalis pedis pulse +2. Left lower extremity is warm and well perfused. Calf is soft and non- tender. The patient is discharged to home on postop day #2, pending medical clearance. Please see orders and refer to the [facility] rec for accurate list of medications. Plan - Discharge Summary Discharge Rx Participant: Yes New Discharge Prescriptions: New Docusate [Colace] 100 mg PO BID #60 capsule HYDROcodone/APAP 10-325MG [[place] 10-325] 1 tab PO Q4HR PRN #42 tab PRN Reason: Pain Rivaroxaban [Xarelto] 10 mg PO DAILY #10 tab Continue Acetaminophen [Tylenol Extra Strength] 500 mg PO DIRECTED PRN PRN Reason: Pain Discharge Medication List Acetaminophen [Tylenol Extra Strength] 500 mg PO DIRECTED PRN 10/25/21 [History] Docusate [Colace] 100 mg PO BID #60 capsule 10/29/21 [Rx] HYDROcodone/APAP 10-325MG [[place] 10-325] 1 tab PO Q4HR PRN #42 tab 10/29/21 [Rx] Rivaroxaban [Xarelto] 10 mg PO DAILY #10 tab 10/29/21 [Rx] Follow up Appointment(s)/Referral(s): [facility], [NON-STAFF] - ([facility] will call you to schedule your home physical therapy visits. ) Andrea Kaiser MD [STAFF PHYSICIAN] - 11/08/21 2:20 pm Activity/Diet/Wound Care/Special Instructions: Weight bear as tolerated May shower after 3 days if no bleeding Keep wound clean and dry Take meds as directed F/U with Dr. Kaiser in office Discharge Disposition: HOME WITH HOME HEALTH SERVICES
[2021-10-30] MEDS: MULTIVITAMINS, THERA 1 EACH TAB PO SCH (12:02)
[2021-10-30 14:47] VITALS: BP 129/81; PULSE 93; RESP 18; TEMP 97.9
== END 2021-10-30 15:47 | disposition home health service (06) ==
LOC: OR 07:24 → 4SSUR 13:46 → OR 22:30
PROVIDERS: ADMIT Orthopaedic Surgery Sports Medicine; ATTEND Orthopaedic Surgery Sports Medicine
DX: M17.12 Unilateral primary osteoarthritis, left knee (principal); J45.20 Mild intermittent asthma, uncomplicated; M25.762 Osteophyte, left knee; F40.240 Claustrophobia; Z20.822 Contact with and (suspected) exposure to COVID-19; Z88.6 Allergy status to analgesic agent; Z91.018 Allergy to other foods; Z91.010 Allergy to peanuts; Z91.013 Allergy to seafood; Z91.048 Other nonmedicinal substance allergy status; Z88.1 Allergy status to other antibiotic agents; Z90.49 Acquired absence of other specified parts of digestive tract; Z98.891 History of uterine scar from previous surgery; Z98.890 Other specified postprocedural states
CPT/HCPCS: 97161; 64999; 64448; 76942; 85025; 88300; 87635; 73560; 27447; G0378 ×3; C1776; C1713; J2250; J1100; J0690 ×2; J2405 ×2; J2001; J3010; J1170; J2795 ×2; J2370; J2704

== ENCOUNTER → 2022-01-26 | Outpatient (CLI) | payer BC ==
[2022-01-26 15:21] LABS: INR 0.9 (<1.2); Partial Thromboplastin Time 24.8 sec (22.0-30.0); Prothrombin Time 9.9 sec (9.0-12.0)
[2022-01-26 18:31] LABS: African American GFR (CKD) 112.5 (60.0-200.0); Albumin 4.7 g/dL (3.8-4.9); Albumin/Globulin Ratio 2.34 (1.60-3.17); BUN/Creat Ratio 26.45 Ratio (12.00-20.00); Blood Urea Nitrogen 16.9 mg/dL (9.0-27.0); Calcium 9.5 mg/dL (8.7-10.3); Carbon Dioxide 27.4 mmol/L (20.0-27.5); Potassium 4.3 mmol/L (3.5-5.5); Total Bilirubin 0.2 mg/dL (0.30-1.20); Total Protein 6.7 g/dL (6.2-8.2)
[2022-01-26 18:38] LABS: HCT 40.2 % (37.2-46.3); HGB 12.4 g/dL (12.0-15.0); MCHC 30.8 g/dL (32.0-37.0); MCV 87.4 fL (80.0-97.0); NRBC Per 100 WBC 0 /100 WBCS (0.0-0.0); Platelet Count 293 X 10*3/uL (140-440); WBC 7.69 X 10*3/uL (4.50-10.00)
[2022-01-26 20:44] LABS: Appearance,Urine Clear (Clear); Bilirubin,Urine Negative (Negative); Blood,Urine Negative (Negative); Color,Urine Yellow (Yellow); Ketones,Urine Trace mg/dL (Negative); Nitrite,Urine Negative (Negative); Specific Gravity,Urine 1.018 (1.001-1.030); Urobilinogen,Urine 0.2 (0.2,1.0)
== END | disposition home or self-care (01) ==
LOC: LABPAT 14:13
PROVIDERS: ATTEND Orthopaedic Surgery Sports Medicine
DX: Z01.812 Encounter for preprocedural laboratory examination (principal)
CPT/HCPCS: 36415; 80053; 81003; 85027; 85610; 85730; 87070

== ENCOUNTER 2022-02-10 09:03 | Observation (INO) | payer BC ==
[2022-02-08 08:25] VITALS: BMI 40.3
[~2022-02-10 09:03] MED LIST changes: -HYDROmorphone 0.5 MG/0.5 ML SYRINGE IVP PRN; -LACTATED RINGERS 1,000 ML IV SCH; -MIDAZOLAM 2 MG/2 ML VIAL IV PRN; +Pre Op ABX Message 1 EACH MISC MISCELLANE ONE; -TRANEXAMIC ACID 1,000 MG in SODIUM CHLORIDE 0.9% 100 ML IVPB PRN; +TRANEXAMIC ACID IN NACL,ISO-OS 1,000 MG in SALINE 1 100ML.BAG IVPB PRN
[2022-02-10] MEDS: LACTATED RINGERS 1,000 ML IV SCH ×3 (09:46→22:27)
[2022-02-10] MEDS ORDERED: MIDAZOLAM 2 MG/2 ML VIAL IVP ONE (09:57)
[2022-02-10] MEDS ORDERED: fentaNYL (PF) 50 MCG/ML 2 ML AMP IVP ONE (09:57)
[2022-02-10] MEDS ORDERED: NALOXONE 0.4 MG/ML 1 ML VIAL IV PRN (10:23)
[2022-02-10] MEDS ORDERED: MAGNESIUM HYDROXIDE 2,400 MG/10 ML CUP PO PRN (10:25)
[2022-02-10] MEDS ORDERED: TEMAZEPAM 15 MG CAP PO PRN (10:25)
[2022-02-10] MEDS ORDERED: ACETAMINOPHEN TAB 325 MG TAB PO PRN (10:25)
[2022-02-10] MEDS ORDERED: HYDROmorphone 0.5 MG/0.5 ML SYRINGE IVP PRN (10:25)
[2022-02-10] MEDS ORDERED: bisacodyL 10 MG SUPP RECTAL PRN (10:25)
[2022-02-10] MEDS ORDERED: ONDANSETRON 4 MG/2 ML VIAL IVP PRN (10:25)
[2022-02-10] MEDS ORDERED: NA PHOS,M-B/NA PHOS,DI-BA 133 ML ENEMA RECTAL PRN (10:25)
[2022-02-10] MEDS ORDERED: HYDROcodone/APAP 10-325MG 1 EACH TAB PO PRN (10:28)
[2022-02-10] MEDS ORDERED: MIDAZOLAM 2 MG/2 ML VIAL ONE (10:33)
[2022-02-10] MEDS ORDERED: ROPIVACAINE 5 MG/ML 30 ML VIAL ONE (10:33)
[2022-02-10] MEDS ORDERED: PROPOFOL 10 MG/ML 20 ML VIAL IV ONE (10:33)
[2022-02-10] MEDS ORDERED: fentaNYL (PF) 50 MCG/ML 2 ML AMP ONE (10:33)
[2022-02-10] MEDS ORDERED: PHENYLEPHRINE-0.9% NACL SYG 1,000 MCG/10 ML SYRINGE ONE (10:33)
[2022-02-10] MEDS ORDERED: TRANEXAMIC ACID IN NACL,ISO-OS 1,000 MG/100 ML BAG ONE (10:33)
[2022-02-10] MEDS ORDERED: LIDOCAINE 2% INJ 20 MG/ML (2 ML VIAL) ONE (10:33)
[2022-02-10] MEDS ORDERED: ceFAZolin 3,000 MG in SODIUM CHLORIDE 0.9% IRRIGATIO 3,000 ML IRRIGATION ONE (11:03)
--- NOTE | 2022-02-10 11:53 | P.ANPRN ---
Procedure Note - Anesthesia - Nerve Block Performed Right Adductor Canal Infusion Time Out Performed: Yes (0955) Date of Procedure: 02/10/22 Procedure Start Time: 09:56 Procedure Stop Time: 10:03 Location of Patient: PreOp Indication: Acute Post-Operative Pain, Requested by Surgeon Specifically requested for management of pain by DrKang: Andrea Kaiser Sedation Type: Sedate with meaningful contact maintained Preparation: Sterile Prep, Sterile Dressing Position: Supine Catheter Depth at Skin (cm): 10 Catheter: Indwelling Needle Types: Pajunk Needle Gauge: Other (see comment) (16) Ultrasound used to visualize needle placement: Yes Ultrasound used to observe medication spread: Yes Injectate: 0.5% Ropivacaine (see comment for volume) (20cc) Blood Aspirated: No Pain Paresthesia on Injection Noted: No Resistance on Injection: Normal Image Stored and Saved: Yes Events: Uneventful and Well Tolerated
--- NOTE | 2022-02-10 11:54 | P.ANPRN ---
Procedure Note - Anesthesia - Nerve Block Performed Right iPack Single Time Out Performed: Yes (0955) Date of Procedure: 02/10/22 Procedure Start Time: 10:04 Procedure Stop Time: 10:07 Location of Patient: PreOp Indication: Acute Post-Operative Pain, Requested by Surgeon Specifically requested for management of pain by DrKang: Andrea Kaiser Sedation Type: Sedate with meaningful contact maintained Preparation: Sterile Prep Position: Supine Catheter: None Needle Types: Pajunk Needle Gauge: 21 Ultrasound used to visualize needle placement: Yes Ultrasound used to observe medication spread: Yes Injectate: 0.5% Ropivacaine (see comment for volume) (20cc) Blood Aspirated: No Pain Paresthesia on Injection Noted: No Resistance on Injection: Normal Image Stored and Saved: Yes Events: Uneventful and Well Tolerated
[2022-02-10] MEDS ORDERED: LACTATED RINGERS 1,000 ML IV ONE (12:21)
--- NOTE | 2022-02-10 13:26 | XR ---
EXAMINATION TYPE: XR knee limited RT DATE OF EXAM: 02/10/2022 COMPARISON: 10/28/2021 HISTORY: Postop right knee TECHNIQUE: 2 view right knee FINDINGS: Tibial and femoral components are present. No joint effusion is evident. Postsurgical saunders es are present. No acute fractures are evident IMPRESSION: 1. No acute fractures posterior replacement.
[2022-02-10] MEDS: HYDROmorphone 0.5 MG/0.5 ML SYRINGE IVP PRN ×4 (14:32→20:56)
--- NOTE | 2022-02-10 14:34 | OP ---
OPERATIVE REPORT DATE OF PROCEDURE: 02/10/2022 SURGEON: Andrea Kaiser M.D. DINKEY BRAKEMAN: Hong Russell PA-C PREOPERATIVE DIAGNOSIS: Right knee osteoarthrosis. POSTOPERATIVE DIAGNOSIS: Right knee osteoarthrosis. OPERATION: Right total knee arthroplasty. ANESTHESIA: Spinal with sedation. ESTIMATED BLOOD LOSS: 100 mL. TOURNIQUET TIME: Tourniquet time was 45 minutes at 250 mmHg. COMPLICATIONS: None apparent. DRAINS: None. DISPOSITION: Post-Anesthesia Care Unit INDICATIONS: Elizabeth is a very pleasant 61-year-old female with longstanding history of right knee pain. History and physical examination are consistent with advanced right knee osteoarthrosis. She has been through significant nonoperative management at this point. Further treatment options were discussed and she decided to go forward with right total knee arthroplasty. The risks of the procedure were discussed with her in detail. These risks include but are not limited to risk of infection, nerve damage, bleeding, pain, and a small risk of deep vein thrombosis which could lead to fatal pulmonary embolism. There is also a risk of loosening of the implant which could require revision operation. The patient understands these risks. All of her questions were answered to her satisfaction. Appropriate informed consent was obtained. DESCRIPTION OF PROCEDURE: The patient was identified in the preoperative holding area. Surgical site was marked by both the patient and myself. She was given 2 grams of Ancef IV for prophylactic purposes. She was then transported to the operative suite. She was placed supine on the operating room table. A spinal anesthetic was then administered and dosed per the anesthesia department without apparent complication. Examination under anesthesia was then performed. The patient was 2-3 degrees shy of full extension. She had 95 degrees of flexion, and the medial collateral ligament, lateral collateral ligament and posterior cruciate ligaments were stable. A tourniquet was then placed high on the right upper thigh, well padded in preparation for surgery. The patient's right lower extremity was then prepped and draped in the usual sterile fashion. A standard surgical pause was undertaken to ensure that we were operating on the correct site and that appropriate preoperative antibiotics had been given. All staff in the room were in agreement and we proceeded. The outlines of the patella were marked with a surgical pen. A planned 12 cm vertical incision centered over the patella was marked with a surgical pen. The leg was then exsanguinated with an Esmarch dressing. The knee was then flexed and the tourniquet was inflated to 250 mmHg. Total tourniquet time for the procedure was 45 minutes. Incision was then made with a 10-blade scalpel. Dissection was carried down sharply to the overlying fascia. Great care was taken to minimize the skin flaps. The knee was then exposed using a standard medial parapatellar approach. A small cuff of quadriceps tendon was then left for suturing. She was in a bit of varus preoperatively. A standard medial release was then made. The superficial medial collateral ligament was dissected off of the bone and around to the posterior aspect of the proximal tibia. The medial meniscus was then excised as well. The lateral meniscus was also released anteriorly. The leg was then externally rotated. The patella was everted. The knee was flexed. Retractors were then placed to protect the collateral ligaments. I then proceeded to remove the infrapatellar fat pad. This was excised sharply tangentially with the fibers of the patellar tendon. I then proceeded to remove the peripheral osteophytes. This was done with a rongeur. I then proceeded with distal femoral resection. She did have near-full extension. A planned 9 mm resection was then done. The femoral canal was then entered in the midline of the femur approximately 10 mm anterior to the origin of the posterior cruciate ligament. The mary was then advanced down to the center of the femur and placed intramedullary. Based on the preoperative radiographs, the angle between the anatomic and mechanical axis of the femur was approximately 4-5 degrees. The valgus angle of the distal femoral cutting guide was then set at 4 degrees for the right knee. The distal femoral cutting guide was then advanced over the intramedullary mary. This was seated firmly against the femur. I then, as mentioned, planned to take 9 mm off the distal femur. The cutting block was then secured onto the femur with pins. The jig was then removed. The distal femoral cut was then made through the slot of the block. The pins were then removed and the distal femoral cutting block was removed. The accuracy of the distal femoral cuts was checked with 2 flat bars. I then proceeded with femoral sizing. The posterior referencing sizing guide was held firmly against the resected distal surface of the femur. The posterior condyles were resting on the posterior plane of the guide. The sizing stylus was then placed onto the anterior femur. The size was measured as a size 8. I then assessed for femoral rotation. The plan was for 3 degrees of external rotation. Three degrees of external rotation was placed onto the jig. These holes were then marked. I then confirmed the rotation by 3 separate methods. This was done using the epicondylar axis as well as Whitesides line and posterior referencing. It was deemed that the external rotation was proper. I then went forward with placing the femoral cutting block. This was placed over the previously placed pin holes. The Jian wing was then placed onto the anterior slots to ensure that we would not notch the anterior femur with the anterior femoral cut. I then proceeded with the anterior femoral cut. This was flush with the anterior cortex of the femur. The posterior cuts were then made followed by the anterior chamfer cut and then the posterior chamfer cut. The cutting block was then removed. Throughout the resection, the collateral ligaments were protected with retractors. I then placed a trial size 8 femur. It was slightly wide, but the narrow fit very nicely and it fit flush with the distal end of the femur. The drill holes were then made. I then proceeded with the tibial cut. I planned for a cruciate-retaining knee. The guide was placed and set for varus, valgus and for slope. The height was set for an approximate 2 mm resection from the medial tibial plateau, which was the lower side. I was happy with the alignment and the amount of resection. The cutting block was then pinned to the proximal tibia. The alignment mary was removed and the proximal tibia was resected with a reciprocating saw. Again this was done with retractors protecting the collateral ligaments as well as the posterior cruciate ligament. I then proceeded to evaluate the flexion and extension gaps. A 10 mm block was then placed. The flexion and extension gaps were equal. I then proceeded with resection of the posterior osteophytes. She had very minimal posterior osteophytes. This was done using a curved osteotome. This resected the posterior osteophytes, and posterior capsule stripping was done off the posterior aspect of the femur. The osteophytes were then removed. I then proceeded with resection of the patella. The thickness of the patella was measured using the caliper. The thickness was 22 mm. The thickness of the anticipated patellar dome was taken into account. Resection was then performed and confirmed to be equal in 4 quadrants using a caliper. Approximately 14 mm of bone remained after resection. A 29 x 8 standard patellar trial was then placed. The holes were drilled and the trial was then placed. I then proceeded with sizing the tibial plate. A size D tibial plate fit very nicely. I then placed the trial femur, the tibial tray and the patellar button. A 10 mm trial tibial insert was also placed. The components fit very nicely. She had full extension and flexion. The extension and flexion gaps were equal and stable to both varus and valgus stress. The patella tracked appropriately. The tibial tray rotation was then marked with a Bovie. This was externally rotated properly. I then proceeded with tibial preparation. I first drilled the femoral holes and removed the femoral component. The tibial tray was then set for proper external rotation as well as medial and lateral placement onto the tibia. It was then pinned into place. I then proceeded with punching the keel. I then decided to proceed with cementing of all of our components. The knee was thoroughly irrigated with sterile saline solution via pulse lavage. The lateral geniculate artery was identified and cauterized. All blood was removed from the bone of the tibia, femur and patella with pulse lavage. I then proceeded with cementing. Two packs of antibiotic bone cement were prepared on the back table by the certified surgical tech/first assistant. I then proceeded with cementing of the tibia first. The cement was impacted into the keel as well as deeply seated into the bone. A second coat of cement was then placed. The tibia was then impacted into place. Excess cement was removed with [place]'s and Joker's. I then proceeded with cementing of the femoral component. The femoral component was also cemented using standard technique. Excess cement was removed. A 10 mm trial insert was then placed into the knee. It was brought into full extension with a constant axial load placed until the cement had hardened. The patellar component was then cemented. This was held firmly with a compressive device until the cement had dried. When the cement had dried, the knee was taken out of extension. All excess cement was removed from around the prosthesis. I then trialed the knee with a 10 mm insert. Flexion and extension gaps were appropriate. The knee was stable. It came into full extension. I decided to go forward with a 10 mm medial-congruent, cross-linked, cruciate-retaining tibial insert. Polyethylene was then placed onto the tibial tray and locked into place. The knee was then reduced. The knee was again further irrigated with sterile saline solution with antibiotic added. The tourniquet was then deflated. Total tourniquet time for the procedure was 45 minutes at 250 mmHg. The final components were Adalgisa Persona size 8 narrow cruciate-retaining femoral component, a size E tibial tray, a 10 mm medial- congruent, cruciate-retaining polyethylene insert and a 29 x 8 mm patella. I then proceeded with closure. Again the knee was thoroughly irrigated. The quadriceps tendon and the medial retinaculum were reapproximated with #2 Ethibond suture. The extensor mechanism was then closed with a running #2 Quill suture. Subcutaneous tissues were closed with 2-0 Vicryl interrupted suture. The skin was closed with a running 3-0 Quill suture. Dermabond was applied to the incision. Sterile compressive dressings were applied. All sponge and needle counts were deemed correct prior to closure. The patient tolerated the procedure without apparent complication. She was transferred to the recovery room in stable condition. MMODL / IJN: [id number] /
[2022-02-10] MEDS ORDERED: IPRATROPIUM-ALBUTEROL 3 ML NEB INHALATION PRN (17:12)
--- NOTE | 2022-02-10 17:13 | P.CONS ---
History of Present Illness - Reason for Consult Consult date: 02/10/22 Medical Management Requesting physician: Andrea Kaiser - History of Present Illness History of Presenting Illness: Patient is a very pleasant 61-year-old female with a past medical history of mild intermittent asthma and osteoarthritis. She is currently admitted under orthopedic surgery team status post right total knee arthroplasty secondary to right knee osteoarthrosis. Surgical procedure was completed by Dr. Kaiser. We have been consulted for continued medical management throughout hospitalization. Patient seen and fully evaluated at bedside. She she appears to be doing very well and has been ambulating to and from restroom with walker and 2 person assist and tolerating well. Patient denies having any postoperative nausea or vomiting and tolerating oral intake. She reports urinating without any difficulties. She reports previous history of left knee replacement. Patient denies history of DVTs or PEs. She denies any recent infection or exposure to known ill contacts. She denies having any headache, lightheadedness, dizziness, chest pain, palpitations, shortness of breath, or experiencing any numbness/tingling in her extremities. Review of systems: Pertinent positives and negatives as discussed in HPI, a complete review of systems was performed and all other systems are negative. Physical exam: Vital signs reviewed and stable. General: Nontoxic, no distress and appears stated age. Derm: Skin warm and dry, normal coloration for ethnicity. Head: Atraumatic, normocephalic and symmetric. Eyes: EOMs intact, no lid lag, and anicteric sclera Mouth: no lip lesions, mucus membranes moist Cardiovascular: regular rate and rhythm with normal S1S2, no murmur, positive posterior tibial pulses bilaterally, and cap refill < 2 seconds. Lungs: Respirations even, regular, and unlabored on room air. Lungs CTA bilaterally, no rhonchi, no rales, no wheezing, and no accessory muscle usage. Abdominal: soft, nontender to palpation, no guarding, no appreciable organomegaly Ext: ROM intact. No gross muscle atrophy, no edema, no contractures. Postsurgical dressing and Josias wrap to right knee/ lower extremity with ice pack in place. Neuro: Speech clear, face symmetrical and CN II-XII grossly intact with no noted focal neuro deficits Psych: Alert and oriented to person, place, time, and situation. Appropriate and pleasant affect. Assessment and Plan of Care: Osteoarthritis Status post right knee replacement -Management per primary admitting orthopedic surgery team including pain management, DVT prophylaxis, weightbearing, and PT/OT. -Currently patient DVT prophylaxis with Xarelto. -Encourage incentive spirometry 10-15 times hourly while awake. Mild intermittent asthma, controlled -Patient denies any recent exacerbations and denies home inhaler use. -DuoNeb's are available as needed for shortness of breath and/or wheezing. -Patient encouraged to use incentive spirometry 10-15 times hourly while awake. Thank you for allowing us to participate in the care of this pleasant patient. Do not hesitate to contact us with questions. Someone can be reached from the [facility] hospitalist group all hours of the day at [phone] or via [employer]. I reviewed the documentation as provided by the LINDSEY above, who is the original author of this note. I agree with the documented assessment and plan, with the following changes: none Past Medical History Past Medical History: Asthma Additional Past Medical History / Comment(s): SLIGHT ASTHMA, no changes since left knee replacement 10/28/21 per pt History of Any Multi-Drug Resistant Organisms: None Reported Past Surgical History: Section, Cholecystectomy, Heart Catheterization, Joint Replacement Additional Past Surgical History / Comment(s): x 3, left knee replacement 10/28/21 Past Anesthesia/Blood Transfusion Reactions: No Reported Reaction Additional Past Anesthesia/Blood Transfusion Reaction / Comm: claustrophobic Past Psychological History: No Psychological Hx Reported Smoking Status: Never smoker Past Alcohol Use History: None Reported Past Drug Use History: None Reported - Past Family History Mother Family Medical History: No Reported History Medications and Allergies Home Medications Medication Instructions Recorded Confirmed Type HYDROcodone/APAP 10-325MG [[place] 1 tab PO Q4HR PRN #42 tab 10/29/21 02/08/22 Rx 10-325] Rivaroxaban [Xarelto] 10 mg PO DAILY #10 tab 02/10/22 Rx Allergies Allergy/AdvReac Type Severity Reaction Status Date / Time aspirin Allergy Anaphylaxis Verified 02/10/22 09:24 chocolate flavor Allergy Unknown Verified 02/10/22 09:24 milk Allergy Unknown Verified 02/10/22 09:24 monosodium glutamate [MSG] Allergy Unknown Verified 02/10/22 09:24 NSAIDS (Non-Steroidal Allergy Unknown Verified 02/10/22 09:24 Anti-Inflamma peanut Allergy Anaphylaxis Verified 02/10/22 09:24 shellfish derived [Shellfish] Allergy Anaphylaxis Verified 02/10/22 09:24 tomato Allergy Unknown Verified 02/10/22 09:24 walnut Allergy Anaphylaxis Verified 02/10/22 09:24 Physical Exam Osteopathic Statement: *. No significant issues noted on an osteopathic structural exam other than those noted in the History and Physical/Consult. Vitals: Vital Signs Temp Pulse Pulse Resp BP Pulse Ox 02/10/22 16:22 97.7 F 89 18 135/79 97 02/10/22 15:15 72 16 110/61 100 02/10/22 14:15 78 16 117/61 100 02/10/22 13:45 84 16 118/58 100 02/10/22 13:15 70 16 114/64 100 02/10/22 13:00 67 16 104/61 99 02/10/22 12:45 73 16 95/62 99 02/10/22 12:32 97.0 F L 77 12 105/48 95 02/10/22 10:16 73 18 121/62 100 02/10/22 09:44 97.5 F L 85 20 137/60 100 Intake and Output 02/10/22 02/10/22 02/10/22 06:59 14:59 22:59 Intake Total 1051 400 Output Total 100 300 Balance 951 100 Intake: IV 1051 400 Output: Urine 300 Estimated Blood Loss 100 Other: Weight 119 kg 119 kg
[2022-02-10] MEDS: SENNOSIDES-DOCUSATE SODIUM 1 EACH TAB PO SCH (20:23)
[2022-02-10] MEDS: HYDROcodone/APAP 10-325MG 1 EACH TAB PO PRN (20:56)
[2022-02-10] MEDS: HYDROmorphone 1 MG/ML 1 ML SYRINGE IVP PRN (23:27)
[2022-02-10] MEDS: diazePAM 5 MG TAB PO PRN (23:30)
[2022-02-11] MEDS: HYDROcodone/APAP 10-325MG 1 EACH TAB PO PRN ×2 (02:42→05:44)
[2022-02-11] MEDS: HYDROmorphone 1 MG/ML 1 ML SYRINGE IVP PRN ×3 (02:42→08:58)
[2022-02-11] MEDS: diazePAM 5 MG TAB PO PRN ×2 (07:29→16:14)
[2022-02-11] MEDS: RIVAROXABAN 10 MG TAB PO SCH (08:45)
[2022-02-11 08:52] LABS: Basophils # (A) 0.02 X 10*3/uL (0.00-0.10); Basophils % (A) 0.2 %; Eosinophils # (A) 0.04 X 10*3/uL (0.04-0.35); Eosinophils % (A) 0.4 %; HCT 36.8 % (37.2-46.3); HGB 11.7 g/dL (12.0-15.0); Immature Grans, Automated 0.5 %; Lymphocytes # (A) 1.21 X 10*3/uL (0.90-5.00); Lymphocytes % (A) 11.6 %; MCH 27.7 pg (27.0-32.0); MCHC 31.8 g/dL (32.0-37.0); MCV 87.2 fL (80.0-97.0); Monocytes # (A) 1.18 X 10*3/uL (0.20-1.00); Monocytes % (A) 11.3 %; NRBC Per 100 WBC 0 /100 WBCS (0.0-0.0); Neutrophils # (A) 7.92 X 10*3/uL (1.80-7.70); Platelet Count 275 X 10*3/uL (140-440); RBC 4.22 X 10*6/uL (4.10-5.20); RDW 14.5 % (11.5-14.5); WBC 10.42 X 10*3/uL (4.50-10.00)
[2022-02-11 09:01] LABS: African American GFR (CKD) 114.8 (60.0-200.0); Albumin 3.9 g/dL (3.8-4.9); Albumin/Globulin Ratio 1.95 (1.60-3.17); Anion Gap 9.3 mmol/L (10.00-18.00); BUN/Creat Ratio 15.33 Ratio (12.00-20.00); Blood Urea Nitrogen 9.2 mg/dL (9.0-27.0); Calcium 9.1 mg/dL (8.7-10.3); Carbon Dioxide 28.7 mmol/L (20.0-27.5); Magnesium 1.9 mg/dL (1.5-2.4); Non-African American GFR(CKD) 99.1 (60.0-200.0); Potassium 4.3 mmol/L (3.5-5.5); Total Bilirubin 0.3 mg/dL (0.30-1.20); Total Protein 5.9 g/dL (6.2-8.2)
[2022-02-11] MEDS: LACTATED RINGERS 1,000 ML IV SCH ×2 (09:41→14:07)
[2022-02-11] MEDS ORDERED: oxyCODONE-APAP 7.5-325MG 1 EACH TAB PO PRN ×2 (10:00→10:01)
[2022-02-11] MEDS: MULTIVITAMINS, THERA 1 EACH TAB PO SCH (11:17)
--- NOTE | 2022-02-11 11:44 | P.PN ---
Progress Note - Text Progress Note Date: 02/11/22 (0452) Anesthesiology Postop day 1 status post total knee arthroplasty with adductor canal catheter. Patient doing well. VAS 6 out of 10. Gross strength intact in lower extremity. Afebrile. Denies alterations in sensorium. Catheter site intact. Heart regular rate Lungs nonlabored Abdomen nondistended Assessment: Postop day 1 status post total knee arthroplasty with adductor canal catheter Plan: All questions answered. Maintain catheter 2 more days with patient removal at home. Instructions were given at discharge. This note was dictated using [employer] software. Please be advised there is a potential for misspellings or errors in meat press operator.
--- NOTE | 2022-02-11 11:44 | P.PN ---
Subjective Progress Note Date: 02/11/22 History of Presenting Illness: Patient is a very pleasant 61-year-old female with a past medical history of mild intermittent asthma and osteoarthritis. She is currently admitted under orthopedic surgery team status post right total knee arthroplasty secondary to right knee osteoarthrosis. Surgical procedure was completed by Dr. Kaiser. We have been consulted for continued medical management throughout hospitalization. Physical exam: Patient seen and fully evaluated at bedside this morning. She is postoperative day 1. Patient is doing well. Patient sitting in recliner chair in room. Patient has been urinating without difficulties and tolerating diet with no episodes of nausea or vomiting. Patient reports that she has been having problems with pain control and adjustments were made to her medication regimen by surgery team. Patient otherwise denies having any complaints at this time. Patient is medically stable for discharge when cleared by primary orthopedic surgery team. Tentative plan is for orthopedic surgery team to discharge tomorrow morning pending control of pain management. Patient again encouraged to use incentive spirometry. Vital signs reviewed and stable. General: Nontoxic, no distress and appears stated age. Derm: Skin warm and dry, normal coloration for ethnicity. Head: Atraumatic, normocephalic and symmetric. Eyes: EOMs intact, no lid lag, and anicteric sclera Mouth: no lip lesions, mucus membranes moist Cardiovascular: regular rate and rhythm with normal S1S2, no murmur, positive posterior tibial pulses bilaterally, and cap refill < 2 seconds. Lungs: Respirations even, regular, and unlabored on room air. Lungs CTA bi laterally, no rhonchi, no rales, no wheezing, and no accessory muscle usage. Abdominal: soft, nontender to palpation, no guarding, no appreciable organomegaly Ext: ROM intact. No gross muscle atrophy, no edema, no contractures. Postsurgical dressing and Josias wrap to right knee/ lower extremity with ice pack in place. Neuro: Speech clear, face symmetrical and CN II-XII grossly intact with no noted focal neuro deficits Psych: Alert and oriented to person, place, time, and situation. Appropriate and pleasant affect. Assessment and Plan of Care: Acute postoperative blood loss anemia -Expected finding and stable with hemoglobin of 11.7. Leukocytosis -Mild leukocytosis with WBC 10.42, reactive. Osteoarthritis Status post right knee replacement completed on 02/10/22 -Management per primary admitting orthopedic surgery team including pain management, DVT prophylaxis, weightbearing, and PT/OT. -Currently patient DVT prophylaxis with Xarelto. -Encourage incentive spirometry 10-15 times hourly while awake. Mild intermittent asthma, controlled -Patient denies any recent exacerbations and denies home inhaler use. -DuoNeb's are available as needed for shortness of breath and/or wheezing. -Patient encouraged to use incentive spirometry 10-15 times hourly while awake. Thank you for allowing us to participate in the care of this pleasant patient. Do not hesitate to contact us with questions. Someone can be reached from the [facility] hospitalist group all hours of the day at [phone] or via [employer]. I reviewed the documentation as provided by the LINDSEY above, who is the original author of this note. I agree with the documented assessment and plan, with the following changes: none Objective - Vital Signs Vital signs: Vital Signs Temp 98.4 F 02/11/22 07:34 Pulse 87 02/11/22 07:34 Resp 17 02/11/22 07:34 BP 118/73 02/11/22 07:34 Pulse Ox 98 02/11/22 07:34 FiO2 Intake & Output 02/10/22 02/11/22 02/11/22 18:59 06:59 18:59 Intake Total 1451 Output Total 400 Balance 1051 Weight 119 kg Intake: IV 1451 Output: Urine 300 Estimated Blood Loss 100 Other: # Voids 1 2 - Labs CBC & Chem 7: 02/11/22 04:20 02/11/22 04:20
[2022-02-11] MEDS: oxyCODONE-APAP 7.5-325MG 1 EACH TAB PO PRN ×3 (12:14→20:13)
[2022-02-11] MEDS: traMADol 50 MG TAB PO PRN ×2 (14:07→21:25)
[2022-02-11] MEDS: SENNOSIDES-DOCUSATE SODIUM 1 EACH TAB PO SCH (20:13)
[2022-02-12] MEDS: oxyCODONE-APAP 7.5-325MG 1 EACH TAB PO PRN (00:06)
[2022-02-12] MEDS: diazePAM 5 MG TAB PO PRN (00:06)
[2022-02-12] MEDS: LACTATED RINGERS 1,000 ML IV SCH ×2 (01:10→09:06)
[2022-02-12] MEDS: traMADol 50 MG TAB PO PRN ×2 (03:43→09:10)
[2022-02-12 04:31] VITALS: RESP 16
[2022-02-12] MEDS: MULTIVITAMINS, THERA 1 EACH TAB PO SCH (09:09)
[2022-02-12] MEDS: RIVAROXABAN 10 MG TAB PO SCH (09:09)
[2022-02-12 09:45] VITALS: BP 139/77; PULSE 88; TEMP 98.2
--- NOTE | 2022-02-12 13:04 | P.DS ---
Providers Date of admission: 02/10/22 23:47 Expected date of discharge: 02/12/22 Attending physician: Andrea Kaiser Consults: 02/10/22 10:25 Consult Physician Routine Consulting Provider: Joselyn Edwards Consult Reason/Comments: post op medical management Do you want consulting provider notified?: Yes Primary care physician: Chris Malin MD - Discharge Diagnosis(es) (1) Right knee pain Current Visit: Yes Status: Acute (2) History of lung disease Current Visit: Yes Status: Acute (3) Obesity Current Visit: Yes Status: Acute (4) History of unsteady gait Current Visit: Yes Status: Acute (5) Osteoarthritis of right knee Current Visit: Yes Status: Acute (6) Status post total right knee replacement Current Visit: Yes Status: Acute Hospital Course: This is a pleasant 61-year-old female who presented with right knee osteoarthrosis who failed outpatient conservative therapy. She was admitted for a right total knee arthroplasty which was performed on 02/10/[address] Andrea Kaiser. The patient tolerated the procedure well and did well postoperatively. She has been able to ambulate with the assistance of a walker. She has a walker at home. She feels the pain at her right knee is adequately controlled. She feels she is ready for discharge today. Condition on day of discharge stable. Patient will be discharged home. Patient was cleared preoperatively for surgery by Dr. Malin. Patient currently denies any nausea, vomiting, fever, or chills. Patient is eating and voiding freely without difficulty. Dressing over the right knee remains clean, dry, and intact. Patient may shower without a dressing intact if the surgical incision site remains clean and dry over the next 72 hours postoperatively. Patient should avoid any standing water. Patient may use a walker to aid in ambulation as needed. She is encouraged to elevate the right lower extremity for comfort support as needed. She may apply ice over the right knee for comfort support as needed. Take medications as prescribed. MAPS was previously reviewed. An "Opiod Start Talking" Form has been signed and placed in the patient's chart. A prescription has been written for Percocet 7.5 mg/325 mg, take 1 tab every 4 hours as needed for pain, dispensed #42. Patient states she does take Ailey as prescribed an outpatient setting for her chronic pain prior to her surgical intervention. She may continue to take Ailey as previously prescribed as needed for pain control but should try to reduce her Ailey intake while continuing to take Percocet 7.5 mg/325 mg postoperatively for pain control. Patient is also given prescription for Xarelto 10 mg 1 by mouth daily, dispensed #10. Patient should take this prescription until completion. She is given a prescription for Colace 100 mg 1 tab twice a day, dispensed #60 as needed for constipation. Patient's other medical diagnoses include history of lung disease, history of unsteady gait, and obesity. Physical Exam Total Knee Arthroplasty: Status post surgical day number 2 Patient is awake, alert, and oriented 3 Vital signs stable Good chest excursion with deep inspiration and expiration No signs or symptoms of DVT; no calf pain Dressing over the right knee is clean, dry, and intact; no erythema, purulence, or signs of infection Some mild generalized swelling around the right knee Some mild bruising around the right knee Patient has full foot and ankle motion without difficulty bilateral lower extremities Dorsiflexion, plantar flexion, and extensor hallucis longus positive sustained bilaterally Neurovascular status right lower extremity intact Capillary refill lower extremity is bilaterally less than 2 seconds Procedures: Right total knee arthroplasty Patient Condition at Discharge: Stable Plan - Discharge Summary Discharge Rx Participant: No New Discharge Prescriptions: New Rivaroxaban [Xarelto] 10 mg PO DAILY #10 tab Docusate [Colace] 100 mg PO BID #60 capsule oxyCODONE-APAP 7.5-325MG [Percocet 7.5-325 mg] 1 tab PO Q4HR PRN #42 tab PRN Reason: Pain No Action HYDROcodone/APAP 10-325MG [Ailey 10-325] 1 tab PO Q4HR PRN #42 tab PRN Reason: Pain Discharge Medication List HYDROcodone/APAP 10-325MG [Ailey 10-325] 1 tab PO Q4HR PRN #42 tab 10/29/21 [Rx] Rivaroxaban [Xarelto] 10 mg PO DAILY #10 tab 02/10/22 [Rx] Docusate [Colace] 100 mg PO BID #60 capsule 02/11/22 [Rx] oxyCODONE-APAP 7.5-325MG [Percocet 7.5-325 mg] 1 tab PO Q4HR PRN #42 tab 02/11/22 [Rx] Follow up Appointment(s)/Referral(s): [facility], [NON-STAFF] - As Needed ([facility] will call you to schedule first appointment for physical therapy.) Andrea Kaiser MD [STAFF PHYSICIAN] - 10 Days Patient Instructions/Handouts: Knee Replacement (DC) Activity/Diet/Wound Care/Special Instructions: 1. Weight Bearing As Tolerated on the right lower extremity 2. Patient may utilize a walker to aid in ambulation as needed 3. Keep surgical site over the right knee clean, dry, and intact 4. keep wound clean and dry take meds as directed Followup in office Discharge Disposition: HOME WITH HOME HEALTH SERVICES
--- NOTE | 2022-02-12 14:51 | P.PN ---
Subjective Progress Note Date: 02/12/22 History of Presenting Illness: Patient is a very pleasant 61-year-old female with a past medical history of mild intermittent asthma and osteoarthritis. She is currently admitted under orthopedic surgery team status post right total knee arthroplasty secondary to right knee osteoarthrosis. Surgical procedure was completed by Dr. Kaiser. We have been consulted for continued medical management throughout hospitalization. Physical exam: Patient seen and fully evaluated at bedside this morning. She is postoperative day 2. Patient is doing well this morning. She reports having much improved control of pain management. Patient has been ambulatory in room with walker and appears to be doing well. Patient continues to deny having any medical complaints or concerns. Postoperative dressing and remains in place to right knee and is clean dry and intact with no signs of bleed through or drainage. Vital signs have been unremarkable. Patient was encouraged to use incentive spirometer to prevent development of atelectasis or pneumonia secondary to decreased ambulation. Patient is medically stable for discharge. Orthopedic surgery team plans to discharge home later today with home care services. Vital signs reviewed and stable. General: Nontoxic, no distress and appears stated age. Derm: Skin warm and dry, normal coloration for ethnicity. Head: Atraumatic, normocephalic and symmetric. Eyes: EOMs intact, no lid lag, and anicteric sclera Mouth: no lip lesions, mucus membranes moist Cardiovascular: regular rate and rhythm with normal S1S2, no murmur, positive posterior tibial pulses bilaterally, and cap refill < 2 seconds. Lungs: Respirations even, regular, and unlabored on room air. Lungs CTA bilaterally, no rhonchi, no rales, no wheezing, and no accessory muscle usage. Abdominal: soft, nontender to palpation, no guarding, no appreciable organom egaly Ext: ROM intact. No gross muscle atrophy, no edema, no contractures. Postsurgical dressing and Josias wrap to right knee/ lower extremity is clean dry and intact with no signs of bleeding or drainage Neuro: Speech clear, face symmetrical and CN II-XII grossly intact with no noted focal neuro deficits Psych: Alert and oriented to person, place, time, and situation. Appropriate and pleasant affect. Assessment and Plan of Care: Acute postoperative blood loss anemia -Expected finding and stable with hemoglobin of 11.7. Leukocytosis -Mild leukocytosis with WBC 10.42, reactive. Osteoarthritis Status post right knee replacement completed on 02/10/22 -Management per primary admitting orthopedic surgery team including pain management, DVT prophylaxis, weightbearing, and PT/OT. -Currently patient DVT prophylaxis with Xarelto. -Encourage incentive spirometry 10-15 times hourly while awake. Mild intermittent asthma, controlled -Patient denies any recent exacerbations and denies home inhaler use. -DuoNeb's are available as needed for shortness of breath and/or wheezing. -Patient encouraged to use incentive spirometry 10-15 times hourly while awake. Thank you for allowing us to participate in the care of this pleasant patient. Do not hesitate to contact us with questions. Someone can be reached from the [facility] hospitalist group all hours of the day at [phone] or via [employer]. I reviewed the documentation as provided by the LINDSEY above, who is the original author of this note. I agree with the documented assessment and plan, with the following changes: None Objective - Vital Signs Vital signs: Vital Signs Temp 98.9 F 02/12/22 02:00 Pulse 92 02/12/22 02:00 Resp 16 02/12/22 02:00 BP 127/82 02/12/22 02:00 Pulse Ox 96 02/12/22 02:00 FiO2 Intake & Output 02/11/22 02/12/22 02/12/22 18:59 06:59 18:59 Other: Voiding Method Toilet Toilet # Voids 6 2 # Bowel Movements 1 - Labs CBC & Chem 7: 02/11/22 04:20 02/11/22 04:20 Labs: Abnormal Lab Results - Last 24 Hours (Table) 02/11/22 02/11/22 Range/Units 04:20 04:20 WBC 10.42 H (4.50-10.00) X 10*3/uL Hgb 11.7 L (12.0-15.0) g/dL Hct 36.8 L (37.2-46.3) % MCHC 31.8 L (32.0-37.0) g/dL Immature Gran # 0.05 H (0.00-0.04) X 10*3/uL Neutrophils # 7.92 H (1.80-7.70) X 10*3/uL Monocytes # 1.18 H (0.20-1.00) X 10*3/uL Carbon Dioxide 28.7 H (20.0-27.5) mmol/L Anion Gap 9.30 L (10.00-18.00) mmol/L Glucose 130 H (70-110) mg/dL Total Protein 5.9 L (6.2-8.2) g/dL
== END 2022-02-12 13:13 | disposition home health service (06) ==
LOC: OR 09:03 → 4SSUR 12:31 → OR 23:47 → 4SSUR 23:47
PROVIDERS: ADMIT Orthopaedic Surgery Sports Medicine; ATTEND Orthopaedic Surgery Sports Medicine
DX: M17.11 Unilateral primary osteoarthritis, right knee (principal); J45.20 Mild intermittent asthma, uncomplicated; Z96.652 Presence of left artificial knee joint; Z98.891 History of uterine scar from previous surgery; Z90.49 Acquired absence of other specified parts of digestive tract; F40.240 Claustrophobia; E66.9 Obesity, unspecified; Z68.41 Body mass index [BMI] 40.0-44.9, adult; Z79.01 Long term (current) use of anticoagulants; Z79.891 Long term (current) use of opiate analgesic; Z88.6 Allergy status to analgesic agent; Z91.02 Food additives allergy status; Z91.011 Allergy to milk products; Z91.010 Allergy to peanuts; Z91.013 Allergy to seafood; Z91.018 Allergy to other foods
CPT/HCPCS: 97116; 97162; 64999; 64448; 76942; 80053; 83735; 85025; 88300; 73560; 27447; G0378 ×2; C1776; C1713; J2250; J1100; J0690 ×2; J2405; J3010; J1170 ×3; J2795; J2370; J2704; J2001